=== PATIENT | male | born 1955 ===

== ENCOUNTER → 2019-12-18 | Outpatient (CLI) | payer OTHER ==
[~2019-12-18] VITALS: Ht 177.8 cm; Wt 78.0 kg
[~2019-12-18] MED LIST: FERROUS SULFAT325 MG ORAL; PREDNISONE5 M3 PO; VITAMIN C500 M1 ORAL
[2019-12-18 15:32] VITALS: BP 111/73
--- NOTE | 2019-12-18 23:00 | Consultation ---
DATE OF CONSULTATION: 12/18/2019 CONSULTING PHYSICIAN: Gurpreet Rajan MD. CHIEF COMPLAINT: Stool OB positive. HISTORY OF PRESENT ILLNESS: This is a 64-year-old male with past medical history of fibromyalgia, colon polyps in the past, anemia, iron deficiency presents to us for evaluation of stool OB positive. PAST MEDICAL HISTORY: History of anemia, fibromyalgia, PMR, colon polyps. PAST SURGICAL HISTORY: None. MEDICATIONS: Please see medication reconciliation list. FAMILY HISTORY: No family history of GI malignancies. SOCIAL HISTORY: Patient occasionally smokes cigarettes. Denies any alcohol or drug abuse. ALLERGIES: No known allergies. REVIEW OF SYSTEMS: Positive for bloody stool and . PHYSICAL EXAMINATION: VITAL SIGNS: Temperature 97.4, pulse is 92, respirations 20, blood pressure is 101/73. HEENT: Normocephalic, atraumatic. Mild pale conjunctivae. NECK: Supple. No evidence of obvious lymphadenopathy. CARDIOVASCULAR: Regular rate and rhythm. Plus S1, S2. LUNGS: Clear to auscultation bilaterally. ABDOMEN: Positive bowel sounds. Soft and nontender. No rebound. No guarding. No peritoneal sign. EXTREMITIES: No cyanosis. No clubbing. No edema. ASSESSMENT AND PLAN: This is a 64-year-old male with stool OB positive, history of colonic polyps, needs endoscopy and colonoscopy. The risks and benefits of procedure was explained to him. The prep was given to him for colonoscopy and endoscopy. Patient will be scheduled when the authorization is obtained. Gurpreet Rajan M.D. DR: Jeromy JOB#: [id number] CC:
== END | disposition home or self-care (01) ==
LOC: PAN 10-14 13:15
DX: K92.1 Melena (principal); M79.7 Fibromyalgia; Z86.010 Personal history of colon polyps; F17.210 Nicotine dependence, cigarettes, uncomplicated